=== PATIENT | male | born 1985 | race Caucasian/White ===

== ENCOUNTER → 2017-06-03 12:49 | Outpatient (CLI) | payer BC, SELFPAY ==
--- NOTE | 2017-06-03 12:59 | US_ITS ---
US breast RT complete COMPARISON: None INDICATION: Palpable lump at 11:00 ORDERING PHYSICIAN: Jacinda Torres PATIENT AGE: 32 years TECHNIQUE: Standard images FINDINGS: Homogeneous echogenicity noted throughout. No discrete abnormalities. IMPRESSION: Negative right breast ultrasound BI-RADS Category: 1 Negative There is indeed a palpable module demonstrated managed on clinical basis. Mammogram may also be of further value if there is indeed a palpable nodule (A letter has been sent to the patient regarding results of the study.)
== END ==
PROVIDERS: Family Provider Family Medicine; Visit Provider Nurse Practitioner Family
DX: N63.11 Unspecified lump in the right breast, upper outer quadrant (principal)
CPT/HCPCS: 76641

== ENCOUNTER → 2017-06-29 12:42 | Outpatient (CLI) | payer BC, SELFPAY ==
--- NOTE | 2017-06-29 13:00 | MM_ITS ---
MM Dig mamm BI DX w/CAD COMPARISON: Ultrasound of 06/03/2017 INDICATION: Right breast lump ORDERING PHYSICIAN: Naty Shepard PATIENT AGE: 32 years TECHNIQUE: Standard images are performed along with nipple profile view and right breast ultrasound. FINDINGS: There is increased fibroglandular tissue bilaterally consistent with bilateral gynecomastia. No discrete mass is evident. No abnormal calcifications IMPRESSION: Bilateral gynecomastia. No discrete mass evident. BI-RADS Category: 2 Benign Finding(s) Please correlate with physical exam. If there is indeed a palpable mass, then it should be managed on clinical basis. A negative mammogram and negative ultrasound does NOT exclude the possibility of malignancy. Any palpable nodule should be managed on a clinical basis (A letter has been sent to the patient regarding results of the study.)
== END ==
PROVIDERS: Family Provider Family Medicine; PCP Family Medicine; Visit Provider Nurse Practitioner
DX: N63.11 Unspecified lump in the right breast, upper outer quadrant (principal)
CPT/HCPCS: 77066

== ENCOUNTER → 2018-06-23 10:52 | Outpatient (CLI) | payer BC, SELFPAY ==
[2018-06-23 10:55] LABS: Adenovirus F 40/41, stool Not Detected (NotDetected); Astrovirus Not Detected (NotDetected); Campylobacter Not Detected (NotDetected); Clostridium Difficile A/B, PCR Not Detected (NotDetected); Cryptosporidium Not Detected (NotDetected); Cyclospora Cayetanesis Not Detected (NotDetected); Entamoeba histolytica Not Detected (NotDetected); Enteroaggregative E coli Not Detected (NotDetected); Enteropathogenic E coli Not Detected (NotDetected); Enterotoxigenic E coli Not Detected (NotDetected); Giardia lamblia Not Detected (NotDetected); Norovirus Not Detected (NotDetected); Plesimonas Shigalloides, PCR Not Detected (NotDetected); Rotavirus A Not Detected (NotDetected); Salmonella, PCR Not Detected (NotDetected); Sapovirus Not Detected (NotDetected); Shiga-like toxin E coli Not Detected (NotDetected); Shigella Enterovasive E coli Not Detected (NotDetected); Vibrio Cholerae Not Detected (NotDetected); Vibrio, PCR Not Detected (NotDetected); Yersinia Entercolitica, PCR Not Detected (NotDetected)
[2018-06-27 06:13] LABS: Calprotectin, Fecal <16 ug/g (0-120)
== END ==
PROVIDERS: Visit Provider Internal Medicine Gastroenterology
DX: K51.90 Ulcerative colitis, unspecified, without complications (principal)
CPT/HCPCS: 83993; 87507

== ENCOUNTER → 2018-11-17 12:18 | Outpatient (CLI) | payer BC, SELFPAY ==
[2018-11-17 12:34] LABS: Basophils # 0.1 K/mm3 (0-0.2); Eosinophils # 0.1 K/mm3 (0.0-0.4); Eosinophils % 1.1 % (0.1-12.0); Hematocrit 41.9 % (42.0-52.0); Hemoglobin 13.9 g/dL (14.1-18.0); Lymphocytes # 1.9 K/mm3 (0.7-4.5); Lymphocytes % 32.2 % (10-50); Mean Corpuscular HGB Conc 33.2 g/dL (31.8-35.4); Mean Corpuscular Volume 90.3 fl (80-94); Mean Platelet Volume 7.5 fl (7.4-10.4); Monocytes # 0.3 K/mm3 (0.1-1.0); Monocytes % 5.3 % (1.7-9.3); Neutrophils # 3.6 K/mm3 (1.8-7.8); Neutrophils % 60.4 % (37.0-80.0); Platelet Count 267 K/mm3 (142-424); Red Blood Count 4.65 M/mm3 (4.60-6.20); White Blood Count 5.9 K/mm3 (4.8-10.8)
== END ==
PROVIDERS: PCP Family Medicine; Visit Provider Nurse Practitioner Family
DX: Z00.00 Encounter for general adult medical examination without abnormal findings (principal)
CPT/HCPCS: 36415; 85025

== ENCOUNTER → 2018-12-08 11:00 | Outpatient (CLI) | payer BC, SELFPAY ==
--- NOTE | 2018-12-08 11:20 | MR_ITS ---
PROCEDURE: MR HEAD/BRAIN WO CON CLINICAL INDICATION: migraine headache Increasing frequency headaches with visual disturbance COMPARISON: No exams were available for comparison TECHNIQUE: Routine multiplanar multi echo sequences are performed without gadolinium enhancement. FINDINGS: No midline shift, mass effect, intracranial hemorrhage or hydrocephalus. No evidence of acute infarction. There are few small T2 white matter hyperintensities present in the parietal lobes. These are nonspecific. They do not demonstrate restricted diffusion. The cerebellopontine angles, cerebellum, and brainstem are unremarkable. The pituitary, optic chiasm, corpus callosum, and craniocervical junction are unremarkable. There is a bulging disc at the C2-C3 level. This is incompletely evaluated as there is some motion artifact in this is on the edge of the image. No mastoid effusion or sinus air-fluid level. IMPRESSION: 1. No acute intracranial findings 2. There are scattered T2 white matter hyperintensities. These are nonspecific and could be seen with migraine headache versus gliotic foci. Demyelinating process is felt to be less likely based on characteristics but not totally excluded. Consider six-month follow-up to confirm stability Dictated by: Santiago Samano MD 12/09/2018 18:28 Signed by: <Electronically signed by Santiago Samano MD in [place]> 12/09/2018 18:28
== END ==
PROVIDERS: PCP Family Medicine; Visit Provider Specialist
DX: G43.909 Migraine, unspecified, not intractable, without status migrainosus (principal)
CPT/HCPCS: 70551

== ENCOUNTER 2020-02-10 12:09 | Emergency (ER) | payer BC, SELFPAY ==
[2020-02-10 12:18] VITALS: BP 138/91; PULSE 108; RESP 19; TEMP 36.6; O2SAT 99; BMI 25.8
--- NOTE | 2020-02-10 12:42 | HMH.EDUTC ---
[facility] [place] Disposition Clinical Impression: URI (upper respiratory infection) Qualifiers: URI type: unspecified URI Qualified Code(s): J06.9 - Acute upper respiratory infection, unspecified Disposition: Home, Self-Care Condition on Discharge: Good Instructions: Sore Throat, DI for Sinusitis, Preventing the Spread of Coronavirus Discharge Instructions Additional Instructions: *Monitor Temp, Over the counter Motrin or Tylenol as directed/as needed Tylenol every 4 hours and Motrin every 6 hours (as long as your family doctor has told you that you can take it) for fever or pain. and straight to ER if unable to lower temp less than 101.0 after medication given *Warm salt water gargles may help to soothe the throat *Throat Lozenges *Warm fluids like tea with honey may help to soothe the throat *Sleep elevated *Humidifier/Vaporizer *Flonase 2 sprays in each nostril daily but be aware that it may take 2-3 days before you notice improvement *Bromfed may cause drowsiness. Know how it effects you (your child) before driving, caring for small child, or sending your child to school. Not other antihistamines/allergy medications while taking bromfed Your throat swab was sent for culture. Those results are typically sent to your primary care. Be sure to follow up in 2-3 days with your family doctor/primary care physician if no improvement so they can review those result and treat if necessary. If you don?t have a primary care doctor, I recommend you get one but in the mean time, you will have to return to a walk in clinic Follow up IMMEDIATELY for new or worsening symptoms or no Noticeable improvement over the next 48-72 hours. 911 for difficulty breathing or swallowing You was tested for today for COVID19 your test result should be back later this evening, you may call back later this evening to see if your test results are back and the result You was given a handout with instructions for Self Quarantine and Self isolation for while you wait on test results and what to do if they are positive Prescriptions: Fluticasone Propionate [Flonase 50mcg nasal spray 16gm] 1 spr NS DAILY #1 bottle Transmission Status: Pending to [id number] Benzonatate [Tessalon Perle 100mg Cap*] 100 mg PO TID PRN #15 cap PRN Reason: Cough Transmission Status: Pending to [facility] # Azithromycin [Z-Fran 250mg Tab] 250 mg PO DIRECTED #6 tab Transmission Status: Pending to [facility] # Referrals: Jean-Paul Shaw MD [Primary Care Provider] - As needed Forms: Work/School Release Time of Disposition: 12:50 Medical Decision Making - Mal Inquiry Pt receiving controlled substance: No Mal was queried for this patient: No Vital Signs: 02/10/20 12:18 Temperature 97.9 F Temperature Source Oral Pulse Rate [Radial] 108 H Respiratory Rate 19 Blood Pressure [Right Arm] 138/91 H Blood Pressure Mean [Right Arm] 106 Blood Pressure Source [Right Arm] Automatic Cuff Blood Pressure Position [Right Arm] Sitting 02 Sat by Pulse Oximetry 99 Oxygen Delivery Method Room Air - Lab Data Lab results reviewed: Yes: I reviewed the patient's lab results. Orders (Tests/Meds): ORDERS Category Date Time Status Covid-19 Nasal PCR ([facility]) Routine Lab 02/10/20 12:30 Received Medical Decision Narrative: Patient reports no home medications [facility] [place] HPI - General Stated complaint: sore throat congestion Time Seen by Provider: 02/10/20 12:42 Mode of Arrival: Ambulatory Source of Information: Patient Limitations: No Limitations Description of Symptoms (Recalled from Triage Doc. by RN): sore throat, cough, body aches, chills x 3 days HEENT Symptoms (Recalled from RN notes): Yes Resp Symptoms (Recalled from RN notes): No Skin Symptoms (Recalled from RN notes): No MS Symptoms (Recalled from RN notes): No Functional Status (Recalled from RN notes): wnl - History of Present Illness Provider Complaint: Patient state that he
[2020-02-10 13:03] VITALS: BP 138/91; PULSE 108; RESP 19; TEMP 36.6; O2SAT 99
[2020-02-10 16:42] LABS: UTC Strep Screen (Rapid) Negative (Negative)
[2020-02-10 16:43] LABS: UTC Influenza A Antigen Negative (Negative); UTC Influenza B Antigen Negative (Negative)
== END 2020-02-10 13:04 | disposition home or self-care (01) ==
PROVIDERS: Emergency Provider Nurse Practitioner; PCP Family Medicine
DX: J06.9 Acute upper respiratory infection, unspecified (principal); G43.709 Chronic migraine without aura, not intractable, without status migrainosus; Z20.828 Contact with and (suspected) exposure to other viral communicable diseases
CPT/HCPCS: 87804; 87880; 99202; U0003

== ENCOUNTER 2020-09-09 09:35 | Emergency (ER) | payer BC, SELFPAY ==
[2020-09-09 09:40] VITALS: BP 130/89; PULSE 89; RESP 18; TEMP 37.1; O2SAT 98; BMI 26.5
[2020-09-09 10:03] LABS: UTC Strep Screen (Rapid) Negative (Negative)
--- NOTE | 2020-09-09 10:12 | HMH.EDUTC ---
[facility] [place] Dis[place] Clinical Impression: Pharyngitis Qualifiers: Pharyngitis/tonsillitis etiology: unspecified etiology Qualified Code(s): J02.9 - Acute pharyngitis, unspecified Disposition: Home, Self-Care Condition on Discharge: Good Instructions: Sore Throat, DI for Pharyngitis/Tonsillopharyngitis -- Adult Additional Instructions: Drink plenty of fluids. Take tylenol or ibuprofen for pain or fever. Take the medications as directed. Follow up with your regular doctor. GO TO THE ER FOR ANY WORSENING SYMPTOMS Prescriptions: predniSONE [Deltasone 10mg tablet] 10 mg PO BID 3 Days #6 tab Transmission Status: Received by [facility] # Azithromycin [Z-Fran 250mg Tab*] 250 mg PO UD DOSE PK #6 tab Transmission Status: Received by [facility] # Referrals: Mable Canseco [Primary Care Provider] - Forms: Work/School Release Time of Disposition: 10:13 Medical Decision Making - Medical Records Medical records reviewed: No: I reviewed the patient's medical records. - Mal Inquiry Pt receiving controlled substance: No Vital Signs: 09/09/20 09:40 09/09/20 10:42 Temperature 98.8 F 98.8 F Temperature Source Temporal Artery Scan Pulse Rate 89 Pulse Rate [Right] 89 Respiratory Rate 18 16 Blood Pressure 130/89 Blood Pressure [Right Arm] 130/89 Blood Pressure Mean [Right Arm] 102 02 Sat by Pulse Oximetry 98 Oxygen Delivery Method Room Air - Lab Data Lab Results 09/09/20 09:47: Strep [facility] Negative Orders (Tests/Meds): ORDERS Category Date Time Status Strep Screen Confirmation Stat Micro 09/09/20 09:47 Received [facility] [place] HPI - General Stated complaint: sore throat, cough, Lt ear pain Time Seen by Provider: 09/09/20 10:12 Mode of Arrival: Ambulatory Source of Information: Patient Limitations: No Limitations Description of Symptoms (Recalled from Triage Doc. by RN): pt c/o cough, sore throat and L ear ache. two of his children are strep positive. HEENT Symptoms (Recalled from RN notes): Yes (sore throat and L ear ache) Resp Symptoms (Recalled from RN notes): No Skin Symptoms (Recalled from RN notes): No MS Symptoms (Recalled from RN notes): No Functional Status (Recalled from RN notes): na - History of Present Illness Provider Complaint: He states that he has had a sore throat and felt bad for the past 3 days. Several of his friends have strep at this time. - Related Data Home Medications Medication Instructions Recorded Confirmed mesalamine 1.2 gram tablet,delayed 1.2 g PO DAILY 03/31/18 03/06/19 release amitriptyline 10 mg tablet 10 mg PO DAILY #60 tab 12/04/18 03/06/19 magnesium hydroxide 400 mg (170 mg mg PO tab 03/06/19 03/06/19 magnesium) chewable tablet pantoprazole 40 mg tablet,delayed PO #60 tab 03/06/19 03/06/19 release Previous Rx's Medication Instructions Recorded fremanezumab-vfrm 225 mg/1.5 mL 225 mg SQ QMONTH #1.5 ml 03/06/19 subcutaneous syringe sumatriptan succinate 100 mg tablet 100 mg PO Q2H PRN #10 tab 03/06/19 topiramate 50 mg tablet 150 mg PO QHS #90 tab 05/08/19 Azithromycin [Z-Fran 250mg Tab] 250 mg PO DIRECTED #6 tab 02/10/20 Benzonatate [Tessalon Perle 100mg 100 mg PO TID PRN #15 cap 02/10/20 Cap*] Fluticasone Propionate [Flonase 1 spr NS DAILY #1 bottle 02/10/20 50mcg nasal spray 16gm] Azithromycin [Z-Fran 250mg Tab*] 250 mg PO UD DOSE PK #6 tab 09/09/20 predniSONE [Deltasone 10mg tablet] 10 mg PO BID 3 Days #6 tab 09/09/20 Allergies Allergy/AdvReac Type Severity Reaction Status Date / Time No Known Allergies Allergy Verified 03/06/19 08:10 - Worker's Comp Is this a Worker's Comp case?: No [facility] History - Hepatitis A Screen Drug use history?: No High risk sexual behaviors?: No History of sexually transmitted infection?: No Currently employed?: No Childcare worker?: No Do you have indoor plumbing?: Yes Do you have electricity?: Yes Attestation statement::
[2020-09-09 10:42] VITALS: BP 130/89; PULSE 89; RESP 16; TEMP 37.1
== END 2020-09-09 10:42 | disposition home or self-care (01) ==
PROVIDERS: Emergency Provider Nurse Practitioner Family; PCP Family Medicine
DX: J02.9 Acute pharyngitis, unspecified (principal)
CPT/HCPCS: 87880; 99202; G0463

== ENCOUNTER → 2020-12-30 09:37 | Outpatient (CLI) | payer BC, SELFPAY | PROVIDERS: PCP Family Medicine; Visit Provider Nurse Practitioner | DX: Z20.822 Contact with and (suspected) exposure to COVID-19 (principal); U07.1 COVID-19 | CPT/HCPCS: C9803; U0003; U0005 ==

== ENCOUNTER → 2021-04-09 09:15 | Outpatient (CLI) | payer BC, SELFPAY ==
--- NOTE | 2021-04-09 09:19 | US_ITS ---
PROCEDURE: US ABDOMEN LIMITED CLINICAL INDICATION: RUQ PAIN COMPARISON: US GB US GALLBLADDER (ABD LTD) from 02/06/2016 FINDINGS: PANCREAS: Poorly demonstrated LIVER: No focal liver lesions demonstrated. Homogeneous echogenicity. No intrahepatic biliary ductal dilatation evident. There is appropriate direction of blood flow within a non dilated portal vein RIGHT KIDNEY: Unremarkable. Normal size and echogenicity. No hydronephrosis GALLBLADDER: Status post cholecystectomy. No biliary dilatation. IMPRESSION: Poor visualization of the pancreas Status post cholecystectomy Otherwise negative Dictated by: Santiago Samano MD 04/09/2021 15:39 Santiago Samano MD in [place] 04/09/2021 15:39
== END ==
PROVIDERS: PCP Family Medicine; Visit Provider Family Medicine Sports Medicine
DX: R10.11 Right upper quadrant pain (principal)
CPT/HCPCS: 76705

== ENCOUNTER 2023-11-22 12:19 | Outpatient (CLI) | payer BC, SELFPAY ==
[2023-11-22 12:52] LABS: Basophils # 0.1 K/mm3 (0-0.2); Basophils % 1.2 % (0.1-2.0); Eosinophils # 0.3 K/mm3 (0.0-0.4); Eosinophils % 2.8 % (0.1-12.0); Hemoglobin 14.6 g/dL (14.1-18.0); Lymphocytes # 2.5 K/mm3 (0.7-4.5); Lymphocytes % 25.5 % (10-50); Mean Corpuscular HGB Conc 31.1 g/dL (31.8-35.4); Mean Corpuscular Volume 96.5 fl (80-94); Mean Platelet Volume 7.6 fl (7.4-10.4); Monocytes # 0.5 K/mm3 (0.1-1.0); Monocytes % 5.3 % (1.7-9.3); Neutrophils # 6.5 K/mm3 (1.8-7.8); Neutrophils % 65.3 % (37.0-80.0); Platelet Count 257 K/mm3 (142-424); Red Blood Count 4.87 M/mm3 (4.60-6.20)
[2023-11-22 14:09] LABS: Thyroid Stimulating Hormone 0.43 uIU/mL (0.465-4.68)
== END 2023-11-22 23:59 | disposition home or self-care (01) ==
LOC: LAB 12:21
PROVIDERS: PCP Family Medicine; Visit Provider Nurse Practitioner Family
DX: R89.9 Unspecified abnormal finding in specimens from other organs, systems and tissues (principal)
CPT/HCPCS: 36415; 84443; 85025

== ENCOUNTER 2024-01-18 09:48 | Outpatient (CLI) | payer BC, SELFPAY ==
[2024-01-18 10:25] LABS: Basophils # 0.1 K/mm3 (0-0.2); Basophils % 1.4 % (0.1-2.0); Eosinophils # 0.2 K/mm3 (0.0-0.4); Eosinophils % 2.9 % (0.1-12.0); Hematocrit 40.9 % (42.0-52.0); Hemoglobin 16.2 g/dL (14.1-18.0); Lymphocytes % 32.9 % (10-50); Mean Corpuscular HGB Conc 39.5 g/dL (31.8-35.4); Mean Corpuscular Hemoglobin 34.6 pg (27.0-31.2); Mean Corpuscular Volume 87.6 fl (80-94); Monocytes # 0.3 K/mm3 (0.1-1.0); Monocytes % 5.3 % (1.7-9.3); Neutrophils # 3.5 K/mm3 (1.8-7.8); Neutrophils % 57.5 % (37.0-80.0); Platelet Count 287 K/mm3 (142-424); Red Blood Count 4.67 M/mm3 (4.60-6.20); Red Cell Distribution Width 13.1 % (11.5-17.5); White Blood Count 6.1 K/mm3 (4.8-10.8)
[2024-01-18 11:09] LABS: Free T4 (Free Thyroxine) 1.19 ng/dl (0.78-2.19)
[2024-01-18 11:23] LABS: Thyroid Stimulating Hormone 0.31 uIU/mL (0.465-4.68)
[2024-01-29 16:09] LABS: Testosterone, Total, LC/MS 630 ng/dL (.)
== END 2024-01-18 23:59 | disposition home or self-care (01) ==
PROVIDERS: PCP Family Medicine; Visit Provider Nurse Practitioner Family
DX: R53.83 Other fatigue (principal)
CPT/HCPCS: 36415; 84403; 84439; 84443; 85025

== ENCOUNTER 2024-05-02 17:06 | Emergency (ER) | payer BC, SELFPAY ==
[2024-05-02 17:15] VITALS: BP 123/84; PULSE 75; RESP 19; TEMP 36.9; O2SAT 98; BMI 24.4
[2024-05-02 17:32] LABS: UTC Strep Screen (Rapid) Negative (Negative)
[2024-05-02 17:33] LABS: UTC Influenza A Antigen Negative (Negative); UTC Influenza B Antigen Negative (Negative)
--- NOTE | 2024-05-02 17:35 | EXP.UTC ---
Discharge Plan Disposition Patient Disposition: Home, Self-Care Condition: Good Prescriptions Prescriptions: New azithromycin 250 mg tablet 250 mg PO DIRECTED Qty: 6 0RF Rx Instructions: Take two (2) tablets on day #1, then one (1) tablet day #2 thru #5 Referrals Follow up/Referrals: Mable Canseco [Primary Care Provider] - See instructions Activity Restrictions/Add. Instructions Additional Instructions/Restrictions: Start antibiotics today be sure to take it as ordered with the full length of time although you should start feeling better in 24-48 hours. Change toothbrush and toothpaste 24-48 hours after starting antibiotics Tylenol or Motrin as needed for fever or pain Encourage fluids, water, Gatorade, Powerade, try cold fluids, popsicles, ice cream will make it feel better You are contagious for 24 hours. Avoid kissing anyone, no eating or drinking after anyone. You are contagious. Follow-up the ER for new or worsening symptoms or no noticeable improvement over the next 24-48 hours. Follow-up with PCP this week. Clinical Impressions Clinical Impression: Strep pharyngitis Instructions Patient Instructions: DI for Strep Throat Print Language Print Language: Swiss Discharge ED Provider: Korin ([facility])Teresa [facility] [place] HPI General Stated complaint: sore throat body ache Mode of Arrival: Ambulatory Source of Information: Patient Limitations: No Limitations Time Seen by Provider: 05/02/24 17:23 Description of Symptoms (Recalled from Triage Doc. by RN): PATIENT C/O SORE THROAT AND BODY ACHES SINCE YESTERDAY HEENT Symptoms (Recalled from RN notes): Yes Resp Symptoms (Recalled from RN notes): No Skin Symptoms (Recalled from RN notes): No MS Symptoms (Recalled from RN notes): No Functional Status (Recalled from RN notes): WNL History of Present Illness Provider Complaint: 39-year-old male presents for sore throat body aches since lunch yesterday Related Data Previous Rx's ?Medication ?Instructions ?Recorded azithromycin 250 mg tablet 250 mg PO DIRECTED #6 tabs 05/02/24 Allergies Allergy/AdvReac Type Severity Reaction Status Date / Time No Known Allergies Allergy Verified 03/02/23 07:59 Worker's Comp Is this a Worker's Comp case?: No [facility] Disclaimer: The information contained in this section may have been updated after the patient was seen, as this information can be updated by other users. Medical History , [employer]) Cervicogenic headache Ulcerative colitis Transformed migraine Surgical History , [employer]) Hx of tonsillectomy Hx of appendectomy Family History , [employer]) Coronary artery disease Social History , [employer]) Smoking Status: Former smoker tobacco type: smokeless tobacco alcohol intake: current alcohol intake frequency: a few times a month substance use type: denies use current occupational status: employed Travel in the last 8 weeks: None household members: spouse and family housing: house marital status: Have you lived/traveled outside [place] in past 30 days?: No Contact w/someone who lives/traveled outside US past 30 days?: No Exposure to someone with infectious disease in past 14 days?: No Do you have a fever (greater than 100.4 F or 38 C)?: No Have you tested positive for COVID-19: No Exposed to someone with COVID-19 in past 14 days?: No Do you have a sore throat?: Yes Do you have a cough?: No Do you have any weakness?: No Do you have any diarrhea?: No Are you experiencing any unusual bleeding?: No Do you have any muscle aches/pain?: No Do you have any abdominal pain?: No Are you experiencing loss of taste or smell?: No ROS Obtained: Yes Systems reviewed as appropriate & no additional complaints except as documented Constitutional Constitutional: Reports system reviewed and no additional complaints, except as documented, Reports as per HPI and Reports body ache ENT Ears, Nose, Mouth, and Throat: Reports system reviewed and no additional complaints, except as documented, Reports as per HPI and Reports sore throat Physical Exam General General appearance: alert and in no apparent distress ENT ENT exam: Present mucous membranes moist and TM's normal bilaterally Expanded ENT Exam Comment: Pharynx red with exudate Respiratory Respiratory exam: Present normal lung sounds bilaterally Cardiovascular Cardiovascular exam: Present regular rate and normal rhythm Neurological Exam Neurological exam: Present alert and oriented X3 Skin Skin exam: Present warm and intact Medical Decision Making Medical Records Medical records reviewed: Yes I reviewed the patient's medical records. Screening: Per USPSTF and CDC recommendations, given the prevalence of disease in our region, it is our hospital?s policy to screen for HIV and viral Hepatitis for all patients aged 18 and over and those with ongoing risk factors. Mal Inquiry Pt receiving controlled substance: No Vital Signs: 05/02/24 17:15 Temperature 98.4 F Temperature Source Oral Pulse Rate [Left Brachial] 75 Respiratory Rate 19 Blood Pressure [Left Arm] 123/84 Blood Pressure Mean [Left Arm] 97 Blood Pressure Source [Left Arm] Automatic Cuff Blood Pressure Position [Left Arm] Sitting 02 Sat by Pulse Oximetry 98 Oxygen Delivery Method Room Air Lab Data Lab results reviewed: Yes I reviewed the patient's lab results. Lab Results 05/02/24 17:16: Influenza Type A Ag Negative, Influenza Type B Ag Negative, Strep [facility] Negative Orders (Tests/Meds): ORDERS Category Date Time Status Strep Screen Confirmation Stat Micro 05/02/24 17:16 Received
[2024-05-02 17:42] VITALS: BP 123/84; PULSE 75; RESP 19; TEMP 36.9; O2SAT 98
== END 2024-05-02 17:44 | disposition home or self-care (01) ==
PROVIDERS: Emergency Provider Nurse Practitioner Family; PCP Family Medicine
DX: J02.0 Streptococcal pharyngitis (principal)
CPT/HCPCS: 87804; 87880; 99213; G0381